=== PATIENT | female | born 1955 | race Caucasian/White ===

== ENCOUNTER → 2018-10-10 | Outpatient (REF) | payer OTHER ==
[~2018-10-10] MED LIST: AMOXICILLIN875 MG PO; HYDROCO/APAP1 TA9 PO; LOTREL1 CA6 PO; ZANTAC 150 MAX150 MG PO
== END | disposition home or self-care (01) | DRG 556 ==
LOC: DI 07:07
PROVIDERS: ATTEND Nurse Practitioner Family
DX: M25.532 Pain in left wrist (principal)

== ENCOUNTER → 2018-10-12 | Outpatient (REF) | payer OTHER | END | disposition home or self-care (01) | DRG 951 | LOC: MAMMO 10-05 07:30 | PROVIDERS: ATTEND Nurse Practitioner Family | DX: Z12.31 Encounter for screening mammogram for malignant neoplasm of breast (principal); N95.1 Menopausal and female climacteric states ==